=== PATIENT | male | born 1960 | race Caucasian/White ===

== ENCOUNTER 2019-10-29 09:30 | Emergency (ER) | payer BC ==
[~2019-10-29] VITALS: Ht 185.4 cm; Wt 102.3 kg
[2019-10-29 09:38] VITALS: Ht 185.4 cm; Wt 102.3 kg
[2019-10-29] MEDS ORDERED: CARDURA2 MG PO (09:40)
[2019-10-29] MEDS ORDERED: EXFORGE 10-3201 TAB PO (09:40)
[2019-10-29] MEDS ORDERED: LIPITOR40 MG PO (09:40)
[2019-10-29] MEDS ORDERED: CIPRO500 MG PO (09:41)
[2019-10-29 10:23] LABS: BILIRUBIN NEGATIVE (NEGATIVE); GLUCOSE NEGATIVE (NEGATIVE); KETONE SMALL mg/dL (NEGATIVE); NITRITE NEGATIVE (NEGATIVE)
[2019-10-29 10:24] LABS: BACTERIA MODERATE /hpf (NEGATIVE); EPITHELIAL CELLS 0-5 /hpf (0-5)
[2019-10-29 10:40] LABS: ALBUMIN 3.5 g/dL (3.4-5.0); BILIRUBIN - TOTAL 0.93 mg/dL (0.2-1.3); CALCIUM 8.5 mg/dL (8.5-10.1); CARBON DIOXIDE 26.4 mmol/L (21.0-32.0); CREATININE - SERUM 1.3 mg/dL (0.6-1.3); PROTEIN - SERUM 7.2 g/dL (6.4-8.2)
[2019-10-29 10:42] LABS: BASOPHILS 0.1 % (0-2); EOSINOPHILS 0.2 % (0-7); HEMATOCRIT 41.2 % (42.0-54.0); HEMOGLOBIN 14.3 g/dL (13.5-17.5); IMMATURE GRANULOCYTES 0.4 % (0-5); LYMPHOCYTES 3.4 % (15-50); MCH 30.6 pg (26.0-34.0); MCHC 34.7 g/dL (31.0-37.0); MEAN PLATELET VOLUME 10.3 fL (7.4-10.4); MONOCYTES 9.6 % (2-11); NEUTROPHILS 86.3 % (40-80); PLATELET COUNT 169 10x3/uL (130-400); RBC 4.68 10x6/uL (4.20-6.10); WBC 8.3 10x3/uL (4.8-10.8)
[2019-10-29 10:45] LABS: ANION GAP 11.5 mmol/L (8-16); POTASSIUM - SERUM 2.9 mmol/L (3.5-5.1)
[2019-10-29 11:33] VITALS: BP 126/82
== END 2019-10-29 11:34 | disposition home or self-care (01) ==
LOC: D.ER 09:30
PROVIDERS: Family Medicine
DX: N41.9 Inflammatory disease of prostate, unspecified (principal); R50.9 Fever, unspecified; R30.0 Dysuria; R35.0 Frequency of micturition; E87.6 Hypokalemia; I10 Essential (primary) hypertension; E78.5 Hyperlipidemia, unspecified

== ENCOUNTER → 2020-08-07 13:04 | Outpatient (CLI) | payer BC ==
[2020-07-06 07:30] VITALS: BMI 28.1
[~2020-08-07 13:04] MED LIST: CARDURA2 MG PO; CATAPRES0.1 MG PO; CIPRO500 MG PO; CRESTOR20 MG PO; DILTIAZEM 24HR240 M4 PO; EXFORGE 10-3201 TAB PO; LIPITOR40 MG PO; LOSARTAN-HCTZ1 EAC1 PO; PROTONIX40 MG PO
== END | disposition home or self-care (01) ==
LOC: D.US 13:04
PROVIDERS: ATTEND Nurse Practitioner Family
DX: R05 Cough (principal)

== ENCOUNTER → 2020-08-23 09:36 | Outpatient (CLI) | payer BC ==
[2020-07-06 07:30] VITALS: BMI 28.1
== END | disposition home or self-care (01) ==
LOC: D.CT 09:30
PROVIDERS: ATTEND Family Medicine
DX: R13.10 Dysphagia, unspecified (principal); R31.29 Other microscopic hematuria

== ENCOUNTER → 2020-09-15 09:06 | Outpatient (CLI) | payer BC ==
[2020-07-06 07:30] VITALS: BMI 28.1
== END | disposition home or self-care (01) ==
LOC: D.US 09:06
PROVIDERS: ATTEND Nurse Practitioner
DX: D17.20 Benign lipomatous neoplasm of skin and subcutaneous tissue of unspecified limb (principal); K40.90 Unilateral inguinal hernia, without obstruction or gangrene, not specified as recurrent